=== PATIENT | female | born 1980 | race American Indian/Alaskan Native ===

== ENCOUNTER 2018-01-01 16:20 | Emergency (ER) | payer BC, OTHER ==
[2018-01-01] MEDS ORDERED: NACL 0.9% 1000 ML 1,000 ML IV ONE (16:46)
--- NOTE | 2018-01-01 16:50 | Emergency Department Report ---
HPI - General Chief Complaint: Psych Time Seen by Provider: 01/01/18 16:32 - HPI HPI: Room 1 The patient is a 37-year-old female presenting with a chief complaint of psychosis. The patient has a history of schizophrenia and bipolar disorder but reportedly had a gastric sleeve performed approximately 2-3 months ago and has never resumed taking her psychiatric medication. 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 The patient states he had last seen the patient in her normal state of health last night before he went to work and he also spoke to her the phone at approximately 03:45 this morning and she sounded like her normal self. The fiance states when he came home he felt the patient having bizarre behavior talking on and on about gone. He states the patient stood in one place in the room making hand gestures for 4-5 hours. The crisis line was called and eventually EMS was called. The patient was very combative and excited and received Haldol 5 mg, Ativan 2 mg, and Benadryl 50 mg IM while en route to the hospital. Patient yells out randomly and is very excited but will not answer questions when asked Location: Mental state Duration: [See above] Quality: Psychosis Severity: Severe Modifying factors: [see above] Context: [see above] Mode of transportation: [not driving] ED Past Medical Hx - Past Medical History Hx Psychiatric Treatment: Yes (bipolar, schizophrenia) - Surgical History Past Surgical History?: Yes Additional Surgical History: Gastric sleeve - Family History Family history: no significant - Social History Smoking Status: Unknown if ever smoked Substance Use Type: None ED Review of Systems ROS: Stated complaint: MH EVAL Other details as noted in HPI Comment: Unobtainable due to pts medical conditions Physical Exam - Physical Exam Vital Signs: Vital Signs 01/01/18 16:26 Temperature 100.5 F H Pulse Rate 132 H Respiratory 22 Rate Blood Pressure 135/86 O2 Sat by Pulse 99 Oximetry Physical Exam: GENERAL: The patient is well-developed well-nourished female appearing very agitated/psychotic. Patient yelling out randomly and making hand gestures HEENT: Normocephalic. Atraumatic. NECK: Supple. Trachea midline CHEST/LUNGS: Clear to auscultation. There is no respiratory distress noted. HEART/CARDIOVASCULAR: Regular. There is tachycardia. There is no gallop rub or murmur. ABDOMEN: Abdomen is soft, nontender. Patient has normal bowel sounds. There is no abdominal distention. SKIN: There is no rash. There is no edema. There is no diaphoresis. NEURO: The patient is awake, alert, and agitated. The patient is not cooperative. Patient will not answer questions or follow commands for neurological exam. The patient has excited but normal speech MUSCULOSKELETAL:There is no evidence of acute injury. ED Course Vital Signs 01/01/18 16:26 Temperature 100.5 F H Pulse Rate 132 H Respiratory 22 Rate Blood Pressure 135/86 O2 Sat by Pulse 99 Oximetry - Reevaluation(s) Reevaluation #1: 01/01/18 23:01 The patient is more calm at this time. The patient has no nuchal rigidity and no complaints at this time. ED Medical Decision Making - Lab Data Result diagrams: 01/01/18 17:47 01/01/18 18:05 Laboratory Tests 01/01/18 01/01/18 01/01/18 17:47 17:47 17:47 WBC RBC Hgb Hct MCV MCH MCHC RDW Plt Count Lymph % (Auto) Roberts % (Auto) Eos % (Auto) Baso % (Auto) Lymph # Roberts # Eos # Baso # Seg Neutrophils % Seg Neutrophils # Sodium Potassium Chloride Carbon Dioxide Anion Gap BUN Creatinine Estimated GFR BUN/Creatinine Ratio Glucose Calcium Total Creatine Kinase TSH Free T4 HCG, Qual Urine Color Urine Turbidity Urine pH Ur Specific [place] Urine Protein Urine Glucose (UA) Urine Ketones Urine Blood Urine Nitrite Urine Bilirubin Urine Urobilinogen Ur Leukocyte Esterase Urine WBC (Auto) Urine RBC (Auto) U Epithel Cells (Auto) Urine Mucus Salicylates < 0.3 L Urine Opiates Screen Urine Methadone Screen Acetaminophen < 5.0 L Ur Barbiturates Screen Ur Phencyclidine Scrn Ur Amphetamines Screen U Benzodiazepines Scrn Urine Cocaine Screen U Marijuana (THC) Screen Drugs of Abuse Note Plasma/Serum Alcohol < 0.01 01/01/18 01/01/18 01/01/18 17:47 17:47 17:59 WBC 14.7 H RBC 4.45 Hgb 14.2 Hct 42.3 MCV 95 MCH 32 MCHC 34 RDW 13.8 Plt Count 400 Lymph % (Auto) 12.7 L Roberts % (Auto) 5.0 Eos % (Auto) 0.6 Baso % (Auto) 0.7 Lymph # 1.9 Roberts # 0.7 Eos # 0.1 Baso # 0.1 Seg Neutrophils % 81.0 H Seg Neutrophils # 11.9 H Sodium Potassium Chloride Carbon Dioxide Anion Gap BUN Creatinine Estimated GFR BUN/Creatinine Ratio Glucose Calcium Total Creatine Kinase TSH 2.640 Free T4 1.54 H HCG, Qual Urine Color Yellow Urine Turbidity Clear Urine pH 5.0 Ur Specific [place] 1.027 Urine Protein 100 mg/dl Urine Glucose (UA) Neg Urine Ketones 80 Urine Blood Mod Urine Nitrite Neg Urine Bilirubin Neg Urine Urobilinogen < 2.0 Ur Leukocyte Esterase Neg Urine WBC (Auto) 4.0 Urine RBC (Auto) 12.0 U Epithel Cells (Auto) < 1.0 Urine Mucus 2+ Salicylates Urine Opiates Screen Urine Methadone Screen Acetaminophen Ur Barbiturates Screen Ur Phencyclidine Scrn Ur Amphetamines Screen U Benzodiazepines Scrn Urine Cocaine Screen U Marijuana (THC) Screen Drugs of Abuse Note Plasma/Serum Alcohol 01/01/18 01/01/18 01/01/18 17:59 17:59 18:05 WBC RBC Hgb Hct MCV MCH MCHC RDW Plt Count Lymph % (Auto) Roberts % (Auto) Eos % (Auto) Baso % (Auto) Lymph # Roberts # Eos # Baso # Seg Neutrophils % Seg Neutrophils # Sodium 139 Potassium 3.5 L Chloride 98.3 Carbon Dioxide 18 L Anion Gap 26 BUN 13 Creatinine 0.6 L Estimated GFR > 60 BUN/Creatinine Ratio 22 Glucose 85 Calcium 10.0 Total Creatine Kinase 402 H TSH Free T4 HCG, Qual Urine Color Urine Turbidity Urine pH Ur Specific [place] Urine Protein Urine Glucose (UA) Urine Ketones Urine Blood Urine Nitrite Urine Bilirubin Urine Urobilinogen Ur Leukocyte Esterase Urine WBC (Auto) Urine RBC (Auto) U Epithel Cells (Auto) Urine Mucus Salicylates Urine Opiates Screen Presumptive negative Urine Methadone Screen Presumptive negative Acetaminophen Ur Barbiturates Screen Presumptive negative Ur Phencyclidine Scrn Presumptive negative Ur Amphetamines Screen Presumptive negative U Benzodiazepines Scrn Presumptive negative Urine Cocaine Screen Presumptive negative U Marijuana (THC) Screen Presumptive negative Drugs of Abuse Note Disclamer Plasma/Serum Alcohol 01/01/18 18:07 WBC RBC Hgb Hct MCV MCH MCHC RDW Plt Count Lymph % (Auto) Roberts % (Auto) Eos % (Auto) Baso % (Auto) Lymph # Roberts # Eos # Baso # Seg Neutrophils % Seg Neutrophils # Sodium Potassium Chloride Carbon Dioxide Anion Gap BUN Creatinine Estimated GFR BUN/Creatinine Ratio Glucose Calcium Total Creatine Kinase TSH Free T4 HCG, Qual Negative Urine Color Urine Turbidity Urine pH Ur Specific [place] Urine Protein Urine Glucose (UA) Urine Ketones Urine Blood Urine Nitrite Urine Bilirubin Urine Urobilinogen Ur Leukocyte Esterase Urine WBC (Auto) Urine RBC (Auto) U Epithel Cells (Auto) Urine Mucus Salicylates Urine Opiates Screen Urine Methadone Screen Acetaminophen Ur Barbiturates Screen Ur Phencyclidine Scrn Ur Amphetamines Screen U Benzodiazepines Scrn Urine Cocaine Screen U Marijuana (THC) Screen Drugs of Abuse Note Plasma/Serum Alcohol - EKG Data -: EKG Interpreted by Me EKG shows normal: sinus rhythm Rate: tachycardia (113 bpm) - EKG Data When compared to previous EKG there are: previous EKG unavailable Interpretation: other (no ischemic changes seen) - Differential Diagnosis psychosis, UTI Critical care attestation.: If time is entered above; I have spent that time in minutes in the direct care of this critically ill patient, excluding procedure time. ED Disposition Clinical Impression: Psychosis, Medical clearance for psychiatric admission Disposition: [id number] PSY HOSP/PSY UNIT Is pt being admited?: No Does the pt Need Aspirin: No Condition: Fair Referrals: PRIMARY CARE, [Primary Care Provider] - 3-5 Days Time of Disposition: 23:02 (awaiting acceptance)
[2018-01-01] MEDS ORDERED: KETALAR IM ONE ×3 (17:09→18:00)
[2018-01-01 18:12] LABS: Basophils # (Auto) 0.1 K/mm3 (0.0-0.1); Basophils % (Auto) 0.7 % (0.0-1.8); Eosinophils # (Auto) 0.1 K/mm3 (0.0-0.4); Eosinophils % (Auto) 0.6 % (0.0-4.3); Hematocrit 42.3 % (30.3-42.9); Hemoglobin 14.2 gm/dl (10.1-14.3); Lymphocytes # (Auto) 1.9 K/mm3 (1.2-5.4); Lymphocytes % (Auto) 12.7 % (13.4-35.0); Mean Corpuscular HGB Conc 34 % (30-34); Mean Corpuscular Hemoglobin 32 pg (28-32); Mean Corpuscular Volume 95 fl (79-97); Monocytes # (Auto) 0.7 K/mm3 (0.0-0.8); Platelet Count 400 K/mm3 (140-440); Red Blood Count 4.45 M/mm3 (3.65-5.03); Red Cell Distribution Width 13.8 % (13.2-15.2)
[2018-01-01 18:31] LABS: Bilirubin,Urine NEG (Negative); Blood,Urine MOD (Negative); Color,Urine Yellow (Yellow); Mucus,Urine 2+ /HPF; Urobilinogen,Urine < 2.0 mg/dL (<2.0)
[2018-01-01 18:32] LABS: BUN/Creatinine Ratio 22; Blood Urea Nitrogen 13 mg/dL (7-17); Hemolysis Index 24
[2018-01-01 18:39] LABS: Amphetamine Screen,Urine PRESUMPTIVE NEGATIVE; Benzodiazepines Screen,Urine PRESUMPTIVE NEGATIVE; Cannabinoid Screen,Urine PRESUMPTIVE NEGATIVE; Cocaine Screen,Urine PRESUMPTIVE NEGATIVE; Methadone Screen,Urine PRESUMPTIVE NEGATIVE; Opiate Screen,Urine PRESUMPTIVE NEGATIVE
[2018-01-01 18:45] LABS: Free T4 (Free Thyroxine) 1.54 ng/dL (0.76-1.46)
[2018-01-01] MEDS ORDERED: TYLENOL PR ONE (18:54)
[2018-01-02] MEDS: ATIVAN IM PRN ×2 (00:35→17:30)
[2018-01-02] MEDS: BENADRYL IM PRN ×2 (00:35→17:30)
[2018-01-02] MEDS: HALDOL IM PRN ×2 (00:35→17:30)
[2018-01-02 21:16] VITALS: BP 118/68
== END 2018-01-02 23:16 ==
LOC: EEVIPCON 16:20 → ED 16:20
DX: F29 Unspecified psychosis not due to a substance or known physiological condition (principal); F31.9 Bipolar disorder, unspecified; F20.9 Schizophrenia, unspecified
CPT/HCPCS: 36415; 80048; 80307; 81001; 82550; 84439; 84443; 84703; 85025; 87040; 93005; 93010; 96372; 99285; G0480; J1200; J1630; J2060; J7030; 80320

== ENCOUNTER 2018-02-06 11:00 | Emergency (ER) | payer BC ==
--- NOTE | 2018-02-06 12:24 | Emergency Department Report ---
ED Psych HPI - General Chief Complaint: Psych Stated Complaint: AMS Time Seen by Provider: 02/06/18 12:17 Source: patient, EMS Mode of arrival: Ambulatory - History of Present Illness Initial Comments: Patient brought in by EMS for behavioral disturbance, with call to EMS by fiance for patient being agitated, confused and crying frequently. Nurse notes that patient was significantly agitated on arrival, alert and responsive, although very evasive and tangential. History from is that patient is supposed to be taken Geodon on a daily basis, has not done so for the past several days. There is no report of personal disturbance, complex, or inciting event on the part of fianc as reported by nurse. On my interview of patient, she is calm, sitting comfortably on bed, but she is quite evasive, and gives tangential answers to interview questions, refusing to give specifics about pertinent history or recent events, such as past medical or psychiatric diagnosis, any history of interpersonal dispute, and a recent alterations, or any suicidal or homicidal ideation. Patient eventually reports that she had a walk-in psychiatric visit at the [place] [facility] yesterday, seen by psychiatrist, but not prescribed any new medications, and not recommended for admission for any inpatient treatment or stabilization. 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 I found it impossible to get patient to speak in terms of specifics , or to confirm any sense of agitation or confusion, or to confirm any prior diagnosis of schizophrenia or bipolar disorder, or to confirm or deny any patients, feelings of confusion, loss of touch with reality, suicidal intent, or homicidal intent. Review of recent medical record shows patient has a past history of schizophrenia with bipolar disorder, with previous evaluation 5 weeks ago for similar complaints, and recently had gastric sleeve bypass surgery, but after that had not resumed her psychiatric medications. Patient is calm but has a regimented attitude and expression, very literal in responding to request during physical examination such as breathing and but not exhaling when asked to inspire, and reporting that she was not told to exhale. She continues being evasive, when asked to mention specifics, and at times when asked about specific diagnosis, simply falls silent. Occasionally, patient will allude to some difficulty or dispute with jose j, possibly indicating that their relationship is dissolving, but also reports at the same time that they have plans to be soon, either within the month or within the year, but is difficult to obtain any history of whether patient has had any physical altercation, many recent dispute or conflict either over their relationship or other issues. Jose J is not in attendance at time of my examination, and this record is the result of discussion with nurse, review of EMS record, and from my direct interview with patient. - Related Data Home Medications Medication Instructions Recorded Confirmed Last Taken Ziprasidone HCl [Geodon] 80 mg PO BID 05/24/13 05/24/13 05/24/13 clonazePAM [Clonazepam] 1 mg PO PRN 05/24/13 05/24/13 Unknown Previous Rx's Medication Instructions Recorded Last Taken Type ALBUTEROL Inhaler [ProAir HFA 2 puff IH QID PRN #1 device 05/25/13 Unknown Rx Inhaler] Azithromycin [Zithromax Z-BRAYAN] 250 mg PO DAILY #6 tab 05/25/13 Unknown Rx Allergies Allergy/AdvReac Type Severity Reaction Status Date / Time AVACADO AdvReac Nausea Uncoded 10/22/17 07:55 ED Review of Systems ROS: Stated complaint: AMS Other details as noted in HPI Comment: Unobtainable due to pts medical conditions Constitutional: denies: chills, fever ED Past Medical Hx - Past Medical History Hx Psychiatric Treatment: Yes (bipolar, schizophrenia) - Surgical History Additional Surgical History: Gastric sleeve - Social History Smoking Status: Unknown if ever smoked Substance Use Type: None - Medications Home Medications: Home Medications Medication Instructions Recorded Confirmed Last Taken Type Ziprasidone HCl [Geodon] 80 mg PO BID 05/24/13 05/24/13 05/24/13 History clonazePAM [Clonazepam] 1 mg PO PRN 05/24/13 05/24/13 Unknown History ALBUTEROL Inhaler [ProAir HFA 2 puff IH QID PRN #1 device 05/25/13 Unknown Rx Inhaler] Azithromycin [Zithromax Z-BRAYAN] 250 mg PO DAILY #6 tab 05/25/13 Unknown Rx ED Physical Exam - General Limitations: No Limitations General appearance: alert, in no apparent distress (not agitated, but has a regimented appearance, speaks extremely laterally, but is also evasive at the same time, and refuses to give specific answers to direct questions) - Head Head exam: Present: atraumatic - Eye Eye exam: Present: normal appearance, PERRL - ENT ENT exam: Present: normal exam, mucous membranes moist - Neck Neck exam: Present: normal inspection. Absent: tenderness - Respiratory Respiratory exam: Present: normal lung sounds bilaterally. Absent: respiratory distress, wheezes, rales, rhonchi - Cardiovascular Cardiovascular Exam: Present: regular rate, tachycardia, normal heart sounds. Absent: systolic murmur, diastolic murmur - GI/Abdominal GI/Abdominal exam: Present: soft, normal bowel sounds. Absent: distended, tenderness - Rectal Rectal exam: Present: deferred - Extremities Exam Extremities exam: Present: normal inspection, full ROM. Absent: tenderness - Back Exam Back exam: Present: normal inspection. Absent: tenderness, CVA tenderness (R), CVA tenderness (L), muscle spasm, paraspinal tenderness, vertebral tenderness - Neurological Exam Neurological exam: Present: alert, oriented X3 (able to name place, date, but evasive on circumstances, although she can recount elements of history fairly well), CN II-XII intact, reflexes normal. Absent: motor sensory deficit - Psychiatric Psychiatric exam: Present: flat affect, other (extremely lateral, regimented, questionably fixed mediations, somewhat restoration). Absent: homicidal ideation , suicidal ideation - Skin Skin exam: Present: warm, dry, intact ED Course Vital Signs 02/06/18 02/06/18 02/06/18 11:30 12:54 13:22 Temperature 37.0 C Pulse Rate 74 74 Respiratory 18 17 18 Rate Blood Pressure 171/119 171/119 [Left] O2 Sat by Pulse 99 99 99 Oximetry ED Medical Decision Making - Lab Data Result diagrams: 02/06/18 12:43 02/06/18 12:43 - Medical Decision Making Patient evaluated by psychiatric mental health services, and although they agree that patient is evasive and tangential, she is currently oriented, not psychotic, not suicidal and not homicidal. She does not represent a threat to herself or to others, and she is currently in establish psychiatric care with recent visit yesterday. She is stable for discharge home, and we will recommend repeat follow-up in the next few days on an expedited basis, to continue medications that she has stopped over the past few days. Critical care attestation.: If time is entered above; I have spent that time in minutes in the direct care of this critically ill patient, excluding procedure time. ED Disposition Clinical Impression: Emotional disorder, History of bipolar disorder Disposition: TO HOME OR SELFCARE Is pt being admited?: No Does the pt Need Aspirin: No Condition: Stable Additional Instructions: We have evaluated you today for report of acute emotional distress, and mental health evaluation shows that stable for continued outpatient treatment. You're therefore stable for discharge, and we are releasing you home on her previous care regimen. However, because you are being managed with daily doses of Geodon, and year. Recently, we believe that this may contribute to exacerbations, and recommended she start taking her Geodon again as previously prescribed. [facility] and make arrangements for an expedited recheck in the coming week to assess how you're doing. Return to the emergency department for repeat evaluation if you feel you're having any worsening of mental distress or other new problems. Referrals: PRIMARY CAREMD [Primary Care Provider] - 3-5 Days Time of Disposition: 16:03
[2018-02-06 13:11] LABS: Basophils # (Auto) 0.1 K/mm3 (0.0-0.1); Basophils % (Auto) 0.8 % (0.0-1.8); Eosinophils # (Auto) 0.1 K/mm3 (0.0-0.4); Eosinophils % (Auto) 0.7 % (0.0-4.3); Hematocrit 42.3 % (30.3-42.9); Lymphocytes # (Auto) 1.8 K/mm3 (1.2-5.4); Lymphocytes % (Auto) 12.6 % (13.4-35.0); Mean Corpuscular HGB Conc 36 % (30-34); Mean Corpuscular Hemoglobin 33 pg (28-32); Mean Corpuscular Volume 94 fl (79-97); Monocytes # (Auto) 0.7 K/mm3 (0.0-0.8); Monocytes % (Auto) 4.6 % (0.0-7.3); Platelet Count 495 K/mm3 (140-440); Red Cell Distribution Width 14.6 % (13.2-15.2)
[2018-02-06 13:27] LABS: Alanine Aminotransferase 29 units/L (7-56); Albumin 4.9 g/dL (3.9-5); BUN/Creatinine Ratio 13; Blood Urea Nitrogen 10 mg/dL (7-17); Calcium 9.9 mg/dL (8.4-10.2); Hemolysis Index 12
[2018-02-06 17:28] VITALS: BP 148/100
== END 2018-02-06 17:33 | disposition home or self-care (01) ==
LOC: ED 11:00
DX: F34.9 Persistent mood [affective] disorder, unspecified (principal); F31.9 Bipolar disorder, unspecified; F32.9 Major depressive disorder, single episode, unspecified; Z91.018 Allergy to other foods
CPT/HCPCS: 36415; 80053; 84443; 85025; 99284; G0480; 80320

== ENCOUNTER 2018-02-08 08:09 | Emergency (ER) | payer BC ==
[2018-02-08] MEDS ORDERED: HALDOL IM PRN (09:37)
--- NOTE | 2018-02-08 09:38 | Emergency Department Report ---
ED General Adult HPI - General Chief complaint: Psych Stated complaint: PSYCHIATRIC DISORDER Time Seen by Provider: 02/08/18 09:17 Source: patient, family, RN notes reviewed, old records reviewed Mode of arrival: Ambulatory Limitations: Other (patient is psychotic and will not answer questions) - History of Present Illness Initial comments: This is a 37-year-old female who is not known to this provider previously. History is primarily obtained by speaking to her fianc, Mr. Alicea; [phone] The patient has a history of psychiatric disease, bipolar, schizophrenia, gastric bypass. She is brought to the hospital by her fianc for psychiatric consultation and evaluation. He reports the patient is not sleeping, not eating, "going into a rage", waking up at all hours in the morning at night, poking him in the morning , and he reports that he thinks the patient is unsafe. The patient will not answer questions about homicidality, suicidality, overdose, access to guns or firearms. She will not answer any open-ended questions to me. She does not answer close and questions to me. The fianc denies fevers, cough, vomiting, urinary symptoms or recent trauma. He also indicates the patient was seen here on February 06 by my colleague, Dr. Deutsch, who provided extensive medical workup for the patient which was essentially unremarkable. The patient and her fianc cannot describe exacerbating or relieving factors, radiation, or qualitative nature of her symptoms except as previously mentioned. -: unknown Radiation: other Quality: other Consistency: other Improves with: other Worsens with: other Associated Symptoms: other - Related Data Home Medications Medication Instructions Recorded Confirmed Last Taken Ziprasidone HCl [Geodon] 80 mg PO BID 05/24/13 05/24/13 05/24/13 clonazePAM [Clonazepam] 1 mg PO PRN 05/24/13 05/24/13 Unknown Previous Rx's Medication Instructions Recorded Last Taken Type ALBUTEROL Inhaler [ProAir HFA 2 puff IH QID PRN #1 device 05/25/13 Unknown Rx Inhaler] Azithromycin [Zithromax Z-BRAYAN] 250 mg PO DAILY #6 tab 05/25/13 Unknown Rx Allergies Allergy/AdvReac Type Severity Reaction Status Date / Time AVACADO AdvReac Nausea Uncoded 10/22/17 07:55 ED Review of Systems ROS: Stated complaint: PSYCHIATRIC DISORDER Other details as noted in HPI Comment: Unobtainable due to pts medical conditions ED Past Medical Hx - Past Medical History Hx Psychiatric Treatment: Yes (bipolar, schizophrenia) - Surgical History Additional Surgical History: Gastric sleeve - Social History Smoking Status: Unknown if ever smoked Substance Use Type: None - Medications Home Medications: Home Medications Medication Instructions Recorded Confirmed Last Taken Type Ziprasidone HCl [Geodon] 80 mg PO BID 05/24/13 05/24/13 05/24/13 History clonazePAM [Clonazepam] 1 mg PO PRN 05/24/13 05/24/13 Unknown History ALBUTEROL Inhaler [ProAir HFA 2 puff IH QID PRN #1 device 05/25/13 Unknown Rx Inhaler] Azithromycin [Zithromax Z-BRAYAN] 250 mg PO DAILY #6 tab 05/25/13 Unknown Rx ED Physical Exam - General Limitations: Other (patient is psychotic) General appearance: alert, in no apparent distress - Head Head exam: Present: atraumatic, normocephalic - Eye Eye exam: Present: normal appearance, PERRL, EOMI - ENT ENT exam: Present: normal exam, normal orophraynx, TM's normal bilaterally - Neck Neck exam: Present: full ROM. Absent: tenderness, meningismus - Respiratory Respiratory exam: Present: normal lung sounds bilaterally. Absent: respiratory distress, wheezes, rales, rhonchi, stridor, chest wall tenderness, accessory muscle use, decreased breath sounds, prolonged expiratory - Cardiovascular Cardiovascular Exam: Present: normal rhythm, tachycardia, normal heart sounds. Absent: bradycardia, irregular rhythm, systolic murmur, diastolic murmur, rubs, gallop - GI/Abdominal GI/Abdominal exam: Present: soft, normal bowel sounds. Absent: distended, tenderness, guarding, rebound, rigid, pulsatile mass - Extremities Exam Extremities exam: Present: normal inspection, full ROM, normal capillary refill , other (2+ pulses noted in the bilateral upper, lower extremities. Compartments soft. No long bony tenderness. The pelvis is stable.). Absent: tenderness, pedal edema, joint swelling, calf tenderness - Back Exam Back exam: Present: normal inspection, full ROM. Absent: tenderness, CVA tenderness (R), paraspinal tenderness, vertebral tenderness - Neurological Exam Neurological exam: Present: alert, CN II-XII intact, other (Extraocular movements intact. Tongue midline. No facial droop. Facial sensation intact to light touch in the V1, V2, V3 distribution bilaterally. 5 and 5 strength in 4 extremities.. Sensation is intact to light touch in 4 extremities.). Absent : motor sensory deficit - Psychiatric Psychiatric exam: Present: agitated, anxious ED Course Vital Signs 02/08/18 09:54 Pulse Rate 99 H Respiratory 18 Rate Blood Pressure 140/96 [Right] O2 Sat by Pulse 100 Oximetry - Reevaluation(s) Reevaluation #1: 02/08/18 10:34 Differential diagnosis, including but not limited to: Psychosis, bipolar disorder, conversion disorder, malingering, medical clearance for psychiatric placement Assessment and plan: 37-year-old female who is brought to the hospital by her fianc for psychiatric symptoms. The patient is disorganized, and will not answer my questions for homicidality, suicidality, or hallucinations. At this point in time, she has not demonstrated that she exhibits decision-making capacity, she appears to be disorganized, and is clearly danger to herself and other people for inability to care for herself. She is therefore placed on a 1013. Recently had extensive medical workup which was unremarkable. Haldol and Ativan required further diagnostic workup to exclude toxic encephalopathy. The crisis team has been informed. A 1013 is filled out by me. 02/08/18 12:32 Reevaluation #2: 02/08/18 12:32 Oral temperature 96.7 degrees. Laboratory studies unremarkable. Recent urinalysis also unremarkable. At this point in time, there does not appear to be in immediate medical contraindication to psychiatric admission, evaluation and consultation. Labs 02/08/18 02/08/18 02/08/18 11:27 11:27 11:27 WBC 10.5 RBC 4.63 Hgb 14.8 H Hct 43.5 H MCV 94 MCH 32 MCHC 34 RDW 14.4 Plt Count 441 H Sodium 137 Potassium 3.7 Chloride 100.8 Carbon Dioxide 20 L Anion Gap 20 BUN 11 Creatinine 0.7 Estimated GFR > 60 BUN/Creatinine Ratio 16 Glucose 103 H Calcium 9.6 Magnesium 2.10 Total Creatine Kinase 362 H Salicylates Acetaminophen Valproic Acid Harts 02/08/18 02/08/18 11:27 11:27 WBC RBC Hgb Hct MCV MCH MCHC RDW Plt Count Sodium Potassium Chloride Carbon Dioxide Anion Gap BUN Creatinine Estimated GFR BUN/Creatinine Ratio Glucose Calcium Magnesium Total Creatine Kinase Salicylates < 0.3 L Acetaminophen < 5.0 L Valproic Acid < 2.8 L Harts 0.1 Vital Signs 02/08/18 09:54 Pulse Rate 99 H Respiratory 18 Rate Blood Pressure 140/96 [Right] O2 Sat by Pulse 100 Oximetry ED Medical Decision Making - Lab Data Result diagrams: 02/08/18 11:27 02/08/18 11:27 Vital Signs 02/08/18 09:54 Respiratory 18 Rate Critical care attestation.: If time is entered above; I have spent that time in minutes in the direct care of this critically ill patient, excluding procedure time. ED Disposition Clinical Impression: Psychosis Qualifiers: Schizoaffective disorder type: unspecified Disposition: [id number]/TX-65 PSY HOSP/PSY UNIT Is pt being admited?: No Does the pt Need Aspirin: No Condition: Stable Referrals: PRIMARY CARE, [Primary Care Provider] - 3-5 Days
[2018-02-08] MEDS: ATIVAN IM PRN ×2 (10:27→18:12)
[2018-02-08 11:38] LABS: Hematocrit 43.5 % (30.3-42.9); Hemoglobin 14.8 gm/dl (10.1-14.3); Mean Corpuscular HGB Conc 34 % (30-34); Mean Corpuscular Hemoglobin 32 pg (28-32); Mean Corpuscular Volume 94 fl (79-97); Platelet Count 441 K/mm3 (140-440); Red Blood Count 4.63 M/mm3 (3.65-5.03); Red Cell Distribution Width 14.4 % (13.2-15.2)
[2018-02-08 11:54] LABS: BUN/Creatinine Ratio 16; Blood Urea Nitrogen 11 mg/dL (7-17); Calcium 9.6 mg/dL (8.4-10.2); Hemolysis Index 5
[2018-02-09 01:29] LABS: HCG Qualitative,Urine Negative (Negative)
[2018-02-09 01:38] LABS: Bilirubin,Urine NEG (Negative); Blood,Urine SM (Negative); Calcium Oxalate Crystals,Urine 1+; Color,Urine Amber (Yellow); Mucus,Urine FEW /HPF
[2018-02-09 12:19] LABS: Amphetamine Screen,Urine PRESUMPTIVE NEGATIVE; Benzodiazepines Screen,Urine PRESUMPTIVE NEGATIVE; Cannabinoid Screen,Urine PRESUMPTIVE NEGATIVE; Cocaine Screen,Urine PRESUMPTIVE NEGATIVE; Methadone Screen,Urine PRESUMPTIVE NEGATIVE; Opiate Screen,Urine PRESUMPTIVE NEGATIVE
[2018-02-09 14:24] VITALS: BP 126/82
--- NOTE | 2018-02-09 17:04 | Consultation ---
History of Present Illness - Reason for Consult Consult date: 02/09/18 Reason for consult: Mental Health Evaluation Requesting physician: LUZ GRANADOS - Chief Complaint Chief complaint: "I am having issues with my boyfriend" - History of Present Psychiatric Illness 37 y.o. AA female presenting to the ER for some type of crisis. Today the patient is calm and cooperative during the assessment. She stated that she does habe a hx of Bipolar DO, but is adamant that her issues isn't a "psy problem." She stated having relationship issues with her boyfriend. Per the patient, her boyfriend has been communicating with another woman. She stated they got into an argument and she walked outside. She refused to return back to her home, so her boyfriend Mr Alicea called 911, per the patient. She stated that she was "overwhelmed and tired mentally" when EMS arrived at her residence. She stated that she refused to answer their questions, so she was brought to the ER. She stated that she has been dealing with relationship issues with Mr Alicea for a couple years. She stated, "I am done, I must do better." Per collateral information from her friend Ava Roberts at [phone], she confirmed that the patient is having "serious" relationship issues at this time. She stated that the patient can stay with her when discharged. She stated that she will be the patient's support system. She stated that she feels that the patient is safe to be discharged. The patient denies SI/HI's and AVH's. She denies erratic sleep and a poor appetite. She denies recreational drug use and alcohol consumption (etoh). She stated that she takes Geodon (compliant) and is seen by the MD for outpatient psy services. Medications and Allergies Allergies Allergy/AdvReac Type Severity Reaction Status Date / Time AVACADO AdvReac Nausea Uncoded 10/22/17 07:55 Home Medications Medication Instructions Recorded Confirmed Last Taken Type Ziprasidone HCl [Geodon] 80 mg PO BID 05/24/13 05/24/13 05/24/13 History clonazePAM [Clonazepam] 1 mg PO PRN 05/24/13 05/24/13 Unknown History ALBUTEROL Inhaler (OR & NICU) 2 puff IH QID PRN #1 device 05/25/13 Unknown Rx [ProAir HFA Inhaler] Azithromycin [Zithromax Z-BRAYAN] 250 mg PO DAILY #6 tab 05/25/13 Unknown Rx Active Meds: Active Medications Haloperidol Lactate (Haldol) 5 mg IM Q6HR PRN PRN Reason: Agitation Last Admin: 02/08/18 10:27 Dose: 5 mg Lorazepam (Ativan) 2 mg IM Q4HR PRN PRN Reason: Agitation Last Admin: 02/08/18 18:12 Dose: 2 mg Past psychiatric history - Past Medical History Past Medical History: other (None at this time per the patient) Past Surgical History: Other (Gastric Bypass) - past Psychiatric treatment and history psychiatric treatment history: Hx of Bipolar DO. Fam psy hx of Mood DO's. - Social History Social history: other (Reside with boyfriend) Mental Status Exam - Vital signs Last Vital Signs Temp 98.1 F 02/09/18 09:37 Pulse 90 02/09/18 09:37 Resp 18 02/09/18 09:37 BP 126/82 02/09/18 14:23 Pulse Ox 100 02/09/18 09:37 - Exam Narrative exam: MSE: Appearance: calm, cooperative Behavior: regular eye contact Speech: regular rate and low tone Mood: "a little tired" Affect: congruent to mood Thought Process: linear Thought Content: denies SI/HI's and AVH's Motor Activity: ambulatory Cognition: A/O x 3 Insight: appropriate Judgment: appropriate Results Result Diagrams: 02/08/18 11:27 02/08/18 11:27 All other labs normal. Assessment and Plan Assessment and plan: Impression: Hx of Bipolar DO. No overt psychosis with the patient. The patient is having relationship issues. Today the patient is calm and cooperative during the assessment. UDS is negative. Recommendation/Plan: Rescind 1013. [facility] The patient do not need a prescription, she have medication at home.
--- NOTE | 2018-02-09 17:44 | Emergency Department Report ---
Blank Doc - Documentation Documentation: I was asked to provide discharge paperwork for this patient. She was seen by the psychiatric team who feel that she has been calm overnight, does not require any 1013 and recommend it be rescinded. She has been given outpatient psychiatric referrals and apparently has access to psychiatric services through the [facility]. Vital signs stable including being afebrile throughout her ED course. Patient was briefly seen and appears to be awake and in no acute distress.
--- NOTE | 2018-02-10 14:42 | Progress Note ---
Subjective - Reason for Consult Consult date: 02/10/18 Reason for consult: Psychiatric Follow-up Evaluation Mental Status Exam - Vital signs Last Vital Signs Temp 98.1 F 02/09/18 09:37 Pulse 90 02/09/18 09:37 Resp 18 02/09/18 09:37 BP 126/82 02/09/18 14:23 Pulse Ox 100 02/09/18 09:37
== END 2018-02-09 18:53 | disposition home or self-care (01) ==
LOC: ED 08:09
DX: F29 Unspecified psychosis not due to a substance or known physiological condition (principal); F31.9 Bipolar disorder, unspecified; F20.9 Schizophrenia, unspecified; F39 Unspecified mood [affective] disorder; Z91.018 Allergy to other foods; Z79.899 Other long term (current) drug therapy
CPT/HCPCS: 36415; 80048; 80164; 80178; 80307; 81001; 81025; 82550; 83735; 85027; 96372; 99284; G0480; J1630; J2060; 80320